=== PATIENT | female | born 1980 | race Caucasian/White ===

== ENCOUNTER 2022-12-26 08:32 | Emergency (ER) | payer OTHER ==
[~2022-12-26] VITALS: Ht 149.8 cm; Wt 72.6 kg
[2022-12-26] MEDS ORDERED: CEPHALEXIN500 M1 PO (08:54)
== END 2022-12-26 09:05 | disposition home or self-care (01) ==
LOC: ED 08:32
DX: L03.114 Cellulitis of left upper limb (principal); Z88.8 Allergy status to other drugs, medicaments and biological substances; Z87.891 Personal history of nicotine dependence